=== PATIENT | male | born 1950 | race Caucasian/White ===

== ENCOUNTER → 2017-09-22 | Day surgery (SDC) | payer MEDICARE ==
[~2017-09-22] MED LIST: LIDOCAINE 1% PF 2 ML VIAL. ID; LIDOCAINE 2% PF Vial for OR 5 ML VIAL.; MIDAZOLAM HCL/PF 2 MG/2 ML VIAL. IV; PROPOFOL 40 ML IV; fentaNYL PF VIAL 100 MCG/2 ML VIAL IV
[2017-09-22] MEDS: IV RINGERS,LACTATED 1000ML 1,000 ML IV (12:40)
== END | disposition home or self-care (01) ==
LOC: SURG 12:10
DX: Z12.11 Encounter for screening for malignant neoplasm of colon (principal); D12.5 Benign neoplasm of sigmoid colon; K64.0 First degree hemorrhoids; K57.30 Diverticulosis of large intestine without perforation or abscess without bleeding; M19.90 Unspecified osteoarthritis, unspecified site; Z98.890 Other specified postprocedural states; Z83.71 Family history of colonic polyps; G47.30 Sleep apnea, unspecified; E66.9 Obesity, unspecified
CPT/HCPCS: 45380; 45385; 88305; J2704

== ENCOUNTER 2020-11-12 23:43 | Emergency (ER) | payer MEDICARE ==
[~2020-11-12] VITALS: Ht 182.9 cm; Wt 124.1 kg
[2020-11-13] VITALS: BP 176/90
--- NOTE | 2020-11-13 00:33 | PHYS DOC ---
Past Medical History Past Surgical History: Other Smoking Status: Never Smoker Alcohol Use: Rarely General Adult EDM: Chief Complaint: LOWER EXTREMITY SWELLING HPI: HPI: Patient is a 69 year old male presents with a chief complaint of swelling left lower extremity. Patient noticed swelling tonight from his left ankle to the toes. Patient states his toes feel numb. He denies any calf or popliteal pain. Patient does have a recent injury of a meniscus tear that he is waiting to get repaired. 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 Review of Systems: Review of Systems: Review of systems: Constitutional symptoms- No fever, no chills. Eyes- No Discharge, No Visual Loss Respiratory symptoms- No shortness of breath, No wheezing, No Dyspnea on Exertion Cardiovascular Systems; No chest pain, No Palpitations, No syncope Gastrointestinal symptoms: NO abdominal pain, no nausea, no vomiting or diarrhea. Genitourinary symptoms: No dysuria. Musculoskeletal symptoms: No back pain No extremity pain. Positive extremity swelling NEUROLOGICAL Symptoms: No headache, no generalized weakness; No focal Weakness Skin: No rash. Heart Score: C/O Chest Pain: N/A Risk Factors: Risk Factors: DM, Current or recent (<one month) smoker, HTN, HLP, family history of CAD, obesity. Risk Scores: Score 0 - 3: 2.5% MACE over next 6 weeks - Discharge Home Score 4 - 6: 20.3% MACE over next 6 weeks - Admit for Clinical Observation Score 7 - 10: 72.7% MACE over next 6 weeks - Early Invasive Strategies Allergies: Allergies: Allergies Coded Allergies Type Severity Reaction Last Updated Verified No Known Drug Allergies 09/22/17 No Physical Exam: PE: General: alert, no acute distress. Skin: warm, dry and intact. HENT: bilateral external ears normal, oropharynx moist, nose normal. Head:: Normocephalic, atraumatic. Neck: Trachea midline. Eyes: EOMI, Normal conjunctiva, No drainage CARDIOVASCULAR: Regular rate and rhythm RESPIRATORY: No respiratory distress Back: Full range of motion. Skin: Warm, dry, no erythema, no rash. Wound left anterior carney no surrounding erythema no cellulitis MUSCULOSKELETAL: Full range of motion of bilateral upper and lower extremities. Edema to left lower extremity GASTROINTESTINAL: Abdomen soft without rebound or guarding. NEUROLOGICAL: Alert and noted to person, place and time. No neurological deficits observed Psychiatric: Cooperative. Normal judgment Current Patient Data: Vital Signs: Vital Signs Date Time Temp Pulse Resp B/P (MAP) Pulse Ox O2 Delivery O2 Flow Rate FiO2 11/13/20 00:00 98.4 85 18 176/90 96 Room Air 98.4 EKG: EKG: [] Radiology/Procedures: Radiology/Procedures: [] Impression: Ultrasound no DVT Course & Med Decision Making: Course & Med Decision Making Pertinent Labs and Imaging studies reviewed. (See chart for details) [] Dragon Disclaimer: Dragon Disclaimer: This electronic medical record was generated, in whole or in part, using a voice recognition dictation system. Departure Departure Impression: Primary Impression: Edema of right foot Disposition: HOME / SELF CARE / HOMELESS Condition: STABLE Referrals: UNKNOWN PCP NAME (PCP) Patient Instructions: Edema DHARMESH CARTER DO Nov 13, 2020 00:33
--- NOTE | 2020-11-13 01:23 | RAD ---
INDICATION: Reason: SWELLING NUMBNESS / Spl. Instructions: / History: COMPARISON: None. TECHNIQUE: Grayscale, color and doppler ultrasound images were obtained of the right lower extremity venous vasculature. RIGHT: No thrombus identified in the common femoral vein, femoral vein, popliteal vein or visualized calf ve ins. IMPRESSION: * No thrombus identified in deep venous system of right lower extremity. Electronically signed by: Hilton Curran MD (11/13/2020 1:21 AM) [id number]
== END 2020-11-13 01:45 | disposition home or self-care (01) ==
LOC: ER 23:43
DX: R60.0 Localized edema (principal)
CPT/HCPCS: 93971; 99284-25

== ENCOUNTER 2021-03-04 18:38 | Emergency (ER) | payer OTHER, MEDICARE ==
[~2021-03-04] VITALS: Ht 182.9 cm; Wt 120.0 kg
[2021-03-04 18:52] VITALS: BP 200/103
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
== END 2021-03-04 20:51 | disposition home or self-care (01) ==
LOC: ER 18:38
DX: S13.9XXA Sprain of joints and ligaments of unspecified parts of neck, initial encounter (principal); V49.49XA Driver injured in collision with other motor vehicles in traffic accident, initial encounter; Y93.I9 Activity, other involving external motion; Y92.89 Other specified places as the place of occurrence of the external cause; Y99.8 Other external cause status
CPT/HCPCS: 70450; 70480; 72125; 99284